=== PATIENT | female | born 1955 | race Caucasian/White ===

== ENCOUNTER → 2022-12-16 12:48 | Outpatient (POV) | payer MEDICARE, SELFPAY ==
[2022-12-16 12:52] VITALS: BMI 32.5
--- NOTE | 2022-12-16 14:33 | P.PCN_ITS ---
Procedure Date: 12/16/22 Time: 14:33 Anesthesiologist:: Reese Viera MD Complications:: None Pre-procedure Diagnosis:: Degenerative disc disease of lumbar spine with lumbar radiculopathy symptoms Post-procedure Diagnosis:: Same Indications for Procedure:: Patient is a pleasant 67-year-old white female who we are treating for low back pain with lumbar radiculopathy symptoms. She has increasing pain in her back rating down both legs. She has an intrathecal Dilaudid pain pump in place she is going at 0.175 mg/day. She has had issues with her PTC device. She is not able to get boluses. We will reprogram her PTC device and give her a new one today. Procedure Details:: Informed consent was obtained risk and benefits of the procedure were explained to the patient. Patient was taken the procedure room. The pump was interrogated. Patient's Dilaudid dose was continued at 0.175 mg/day. PTC device was programmed and we started at 0.015 mg up to 8 times a day. Patient tolerated the procedure well no complications. Plan and Disposition:: We will follow-up with this patient in 2 weeks at our [place] office. If she has any problems or questions she is to call us in the pain clinic
== END | disposition home or self-care (01) ==
PROVIDERS: Visit Provider Anesthesiology
DX: Z45.1 Encounter for adjustment and management of infusion pump (principal); M51.16 Intervertebral disc disorders with radiculopathy, lumbar region
CPT/HCPCS: 62368